=== PATIENT | male | born 1990 | race African-American/Black ===

== ENCOUNTER → 2020-09-01 09:57 | Outpatient (CLI) | payer MEDICARE ==
[2011-04-30 14:27] VITALS: BMI 21.6
== END | disposition home or self-care (01) ==
LOC: D.MRI 09:57
PROVIDERS: ATTEND Internal Medicine Gastroenterology
DX: K76.9 Liver disease, unspecified (principal)

== ENCOUNTER → 2020-09-29 09:18 | Outpatient (CLI) | payer MEDICARE, OTHER ==
[2011-04-30 14:27] VITALS: BMI 21.6
--- NOTE | ~2020-09-29 | EC ---
PATIENT:CIRO CHOWDHURY DATE OF SERVICE: 09/29/20 SEX: M MEDICAL RECORD: [id number] DATE OF : [birth year] LOCATION:D[facility] AGE OF PATIENT: 30 ADMISSION DATE: 09/29/20 REFERRING PHYSICIAN: INTERPRETING PHYSICIAN: STEPHEN BARTON MD ECHOCARDIOGRAM REPORT ECHO CHARGES 4 ECHO COMPLETE Date: 09/29/20 CLINICAL DIAGNOSIS: HTN/SYSTOLIC MURMUR,TACHYCARDIA ECHOCARDIOGRAPHIC MEASUREMENTS (adult normal given) AC root (d.<3.7cm) 2.9 cm LV Septum d (<1.2 cm> 1.0 cm Valve Excursion 1.4 cm LV Septum (systole) 1.2 cm Left Atria (s.<4.0cm> 3.6 cm LVPW d(<1.2cm) 1.2 cm RV (d.<2.3cm) 3.7 cm LVPW (sytole) 1.5 cm LV diastole(<5.6CM) 4.7 cm MV E-F(>70mm/sec) cm LV systole 3.1 cm LVOT Diameter 1.9 cm MV exc.(>10mm) 1.9 cm Est.ejection fraction (50-75%) % DOPPLER: LVIT cm/sec A 49.0 cm/sec E 94.0 cm/sec LA cm/sec RVSP 36 mmHg LVOT 93 cm/sec AOP1/2T m/s Asc. Ao 117 cm/sec RVOT 78 cm/sec RA cm/sec PA 128 cm/sec AV Gradient Peak 5.52 mmHg AV Mean 2.87 mmHg AV Area 2.2 cm MV Gradient Peak 5.26 mmHg MV Mean 1.98 mmHg MV Area cm COMMENTS: Program Admin: 2 RADHA DUMONT [employer] Paralegal: 3 Dr. Méndez TAPE# PACS Pericardial Effusion N DATE OF SERVICE: Adequate 2D, color-flow imaging, spectral Doppler, and M-Mode FINDINGS: No LVH. LV internal dimension is normal. Wall motion is normal. EF is greater than or equal to 55%. Aortic valve is tricuspid. No evidence of stenosis by Doppler interrogation. Left atrium is normal at 3.6 cm. Mitral valve shows no prolapse. Trace MR. Right side is grossly normal. Trace TR. TRANSINT:[id number] Voice Confirmation ID: [id number] DOCUMENT ID: [id number] ECHOCARDIOGRAM REPORT [id number] CIRO CHOWDHURY GREGORY A MD CC: [id number] DICTATION DATE: 09/30/20 1251 DIRECTOR OF CAPITAL GIVING: 09/30/20 1552 DEP CLI 09/29/20 [id number] [place] [address]
== END | disposition home or self-care (01) ==
LOC: D.HCCECHO 09:18
PROVIDERS: ATTEND Internal Medicine Interventional Cardiology
DX: I10 Essential (primary) hypertension (principal)